=== PATIENT | male | born 1975 | race Hispanic/Latino ===

== ENCOUNTER 2021-07-03 18:34 | Emergency (ER) | payer SELFPAY ==
[~2021-07-03] VITALS: Ht 180.3 cm; Wt 70.0 kg
[2021-07-03 20:01] LABS: HEMATOCRIT 41.9 % (39.0-50.0); HEMOGLOBIN 14.1 g/dl (14.0-18.0); IMMATURE GRANULOCYTES 0.2 % (0.0-5.0); MEAN CELL VOLUME 89.3 fL CALC (80.0-100.0); MEAN CORPUSCULAR HGB 30.1 pG CALC (26.0-32.0); MEAN CORPUSCULAR HGB CONC 33.7 g/dL CAL (32.0-36.0); NEUT# 3.94 thou/uL (1.82-7.42); RED BLOOD COUNT 4.69 mill/uL (4.70-6.10)
[2021-07-03 20:55] VITALS: BP 116/79
== END 2021-07-03 21:04 | disposition home or self-care (01) | DRG 179 ==
LOC: ED 18:34
PROVIDERS: Family Medicine
DX: U07.1 COVID-19 (principal)